=== PATIENT | female | born 1975 | race Caucasian/White ===

== ENCOUNTER 2020-02-27 17:04 | Outpatient (CLI) | payer OTHER, SELFPAY ==
--- NOTE | ~2020-02-27 | MM_ITS ---
EXAMINATION: MM screening magi BI w jesica HISTORY: Screening TECHNIQUE: Craniocaudal and mediolateral oblique 3-D tomosynthesis images were obtained and synthetic 2-D images were generated. CAD analysis was submitted and interpreted. COMPARISON: Comparison to multiple prior studies sequentially, with oldest reviewed study dated 02/2016. BREAST PARENCHYMAL COMPOSITION: Breast composed of scattered areas of fibroglandular density. FINDINGS: There are developing bilateral breast asymmetries in the upper outer quadrant of the right breast in the medial aspect of the left breast on CC view and upper aspect of the left breast on MLO view. No architectural distortion or suspicious calcifications. IMPRESSION: 1. Bilateral breast asymmetries. 2. Additional mammographic views and possible breast ultrasound are recommended. BI-RADS Category 0: Incomplete: Needs additional imaging evaluation. Reviewed, dictated and finalized at location A. R TESTER IMPRESSION: 1. Bilateral breast asymmetries. 2. Additional mammographic views and possible breast ultrasound are recommended . BI-RADS Category 0: Incomplete: Needs additional imaging evaluation.
== END 2020-02-27 17:05 | disposition home or self-care (01) ==
PROVIDERS: Visit Provider Obstetrics & Gynecology
DX: Z12.31 Encounter for screening mammogram for malignant neoplasm of breast (principal); R92.8 Other abnormal and inconclusive findings on diagnostic imaging of breast
CPT/HCPCS: 77063; 77067

== ENCOUNTER 2020-03-24 12:47 | Outpatient (CLI) | payer OTHER, SELFPAY ==
--- NOTE | ~2020-03-24 | MMUS_ITS ---
EXAMINATION: MM diagnostic mammo BI, US breast BI complete HISTORY: Bilateral mammographic asymmetries reported on 02/27/2020 screening mammogram examination TECHNIQUE: Additional 3-D tomosynthesis images of were performed and synthetic 2-D images were genera katarzyna. CAD analysis was submitted and interpreted. High resolution breast ultrasound was performed. COMPARISON: 02/27/2020 bilateral digital screening mammogram FINDINGS: MAMMOGRAPHIC FINDINGS: There is an approximately 10 mm asymmetric opacity in the lower outer quadrant of the right breast (M LO Tomosynthesis image 18/73). Stoma 8.5 mm circumscribed opacity in the inner aspect of the lower outer right breast (CC Tomosynthe sis image 19/82). Proximally 5.3 x 8 mm opacity in the lower inner left breast (MLO Tomosynthesis image 54/70). ULTRASOUND: Right breast: Dense tissue is noted on the right. No suspicious right breast mass or shadowing is noted. Left breast: 6:00 5 cm from nipple: There is a septated cyst without internal vascularity or posterior shadowing, with through transmission and posterior enhancement. No solid left mass or suspicious shadowing is evident. IMPRESSION: 1. No mammographic evidence of malignancy 2. Routine annual mammographic screening is recommended. BI-RADS Category 2: Benign finding(s). Reviewed, dictated and finalized at location A. ICAL TEST ENGINEER IMPRESSION: 1. No mammographic evidence of malignancy 2. Routine annual mammographic screening is recommended. BI-RADS Category 2: Benign finding(s).
== END 2020-03-24 12:48 | disposition home or self-care (01) ==
LOC: ANHIMG 12:52
PROVIDERS: Visit Provider Obstetrics & Gynecology
DX: R92.8 Other abnormal and inconclusive findings on diagnostic imaging of breast (principal)
CPT/HCPCS: 76641; 77066

== ENCOUNTER 2021-12-15 10:19 | Outpatient (CLI) | payer OTHER, SELFPAY ==
--- NOTE | ~2021-12-15 | MM_ITS ---
EXAMINATION: MM screening magi BI w jesica HISTORY: Screening TECHNIQUE: Craniocaudal and mediolateral oblique 3-D tomosynthesis images were obtained and synthetic 2-D images were generated. CAD analysis was submitted and interpreted. COMPARISON: Comparison to multiple prior studies sequentially, with oldest reviewed study dated 02/2016. BREAST PARENCHYMAL COMPOSITION: Breast composed of scattered areas of fibroglandular density FINDINGS: There are developing asymmetries in the medial aspect of the right breast posteriorly on CC view. Also focal asymmetry medially in the left breast on CC view. There are no suspicious calcifica tions or architectural distortion. IMPRESSION: 1. New bilateral breast asymmetries. 2. Additional mammographic views and possible breast ultrasound are recommended. BI-RADS Category 0: Incomplete: Needs additional imaging evaluation. Reviewed, dictated and finalized at location A. IMPRESSION: 1. New bilateral breast asymmetries. 2. Additional mammographic views and possible breast ultrasound are recommended . BI-RADS Category 0: Incomplete: Needs additional imaging evaluation.
== END 2021-12-15 10:20 | disposition home or self-care (01) ==
PROVIDERS: Visit Provider Obstetrics & Gynecology
DX: Z12.31 Encounter for screening mammogram for malignant neoplasm of breast (principal); R92.8 Other abnormal and inconclusive findings on diagnostic imaging of breast
CPT/HCPCS: 77063; 77067

== ENCOUNTER 2021-12-30 13:58 | Outpatient (CLI) | payer OTHER, SELFPAY ==
--- NOTE | ~2021-12-30 | MMUS_ITS ---
EXAMINATION: MM diagnostic magi BI w jesica, US breast LT limited HISTORY: Follow-up right breast asymmetry and possible left breast mass TECHNIQUE: Additional 3-D tomosynthesis images of the breasts were performed and synthetic 2-D images were generated. CAD analysis was submitted and interpreted. High resolution Limited left breast ultr asound was performed. COMPARISON: Comparison to multiple prior studies sequentially, with oldest reviewed study dated 09/2026. BREAST PARENCHYMAL COMPOSITION: Breast composed of scattered areas of fibroglandular density FINDINGS: MAMMOGRAPHIC FINDINGS: There are no suspicious masses, calcifications or architectural distortion in the right breasts to steven ggest malignancy. There is a small circumscribed mass in the lower inner quadrant of the left breast. ULTRASOUND: Limited left breast ultrasound: At 6:00, 3 cm from the nipple there is a 3 mm cyst. No other masses a re identified. No definitive correlate to the mass in the lower inner quadrant seen on mammography, a lthough this likely benign. IMPRESSION: 1. Probable benign left breast mass, lower inner quadrant. No definite sonographic correlate. 2. Recommend 6 month follow-up diagnostic left mammogram with possible additional ultrasound BI-RADS category 3, probably benign findings. Reviewed, dictated and finalized at location A. OF STORE OPERATIONS IMPRESSION: 1. Probable benign left breast mass, lower inner quadrant. No definite sonograp hic correlate. 2. Recommend 6 month follow-up diagnostic left mammogram with possible addition al ultrasound BI-RADS category 3, probably benign findings.
== END 2021-12-30 13:59 | disposition home or self-care (01) ==
PROVIDERS: Visit Provider Obstetrics & Gynecology
DX: R92.8 Other abnormal and inconclusive findings on diagnostic imaging of breast (principal)
CPT/HCPCS: 76642; 77062; 77066; G0279

== ENCOUNTER 2022-08-19 12:08 | Outpatient (CLI) | payer OTHER, SELFPAY ==
--- NOTE | ~2022-08-19 | MMUS_ITS ---
EXAMINATION: MM diagnostic magi LT w jesica, US breast LT limited HISTORY: Six-month follow-up for probably benign left breast masses TECHNIQUE: Craniocaudal, mediolateral, and mediolateral oblique 3-D tomosynthesis images of the left breast were performed and synthetic 2-D images were generated. CAD analysis was submitted and interpr eted. High resolution limited left breast ultrasound was performed. COMPARISON: 12/30/2021, 12/15/2021, 03/24/2020, 02/27/2020 BREAST PARENCHYMAL COMPOSITION: There are scattered areas of fibroglandular density. FINDINGS: MAMMOGRAPHIC FINDINGS: No suspicious mass, calcification, or architectural distortion are identified. A stable 6 mm low-dens ity obscured mass is seen at the 3:00 location 9 cm from the nipple. There has been no suspicious int erval change. ULTRASOUND: A 7 mm x 4 mm oval, circumscribed, parallel, hypoechoic mass at 8:00 location 6 cm from the nipple is decreased in size since the 2020 comparison. There is a 4 mm cyst at the 6:00 location 3 cm from the nipple. IMPRESSION: 1. No mammographic or sonographic evidence of malignancy. 2. Recommend bilateral screening mammography in six months. BI-RADS Category 2: Benign finding(s). Reviewed, dictated and finalized at location A. IMPRESSION: 1. No mammographic or sonographic evidence of malignancy. 2. Recommend bilateral screening mammography in six months. BI-RADS Category 2: Benign finding(s).
== END 2022-08-19 12:09 | disposition home or self-care (01) ==
LOC: ANHIMG 12:11
PROVIDERS: Visit Provider Obstetrics & Gynecology
DX: R92.8 Other abnormal and inconclusive findings on diagnostic imaging of breast (principal)
CPT/HCPCS: 76642; 77061; 77065; G0279

== ENCOUNTER 2023-06-05 14:45 | Outpatient (CLI) | payer OTHER, SELFPAY ==
--- NOTE | ~2023-06-05 | MM_ITS ---
EXAMINATION: MM screening magi BI w jesica HISTORY: Screening mammogram TECHNIQUE: Craniocaudal and mediolateral oblique 3-D tomosynthesis images were obtained and synthetic 2-D images were generated. CAD analysis was submitted and interpreted. COMPARISON: 08/19/2022 diagnostic left mammogram and limited left breast ultrasound examination 12/30/2021 diagnostic bilateral mammogram and limited left breast ultrasound 12/15/2021 bilateral screening mammogram 04/03/2020 diagnostic bilateral mammogram and complete bilateral breast ultrasound examination 02/27/2020 bilateral screening mammogram BREAST PARENCHYMAL COMPOSITION: There are scattered areas of fibroglandular density. FINDINGS: There is no evidence of suspicious mass, calcification, or architectural distortion to sugg est malignancy in either breast. There has been no suspicious interval change. IMPRESSION: 1. No mammographic evidence of malignancy. 2. Recommend routine screening mammography in one year. BI-RADS Category 1: Negative Reviewed, dictated and finalized at location A.
== END 2023-06-05 14:46 | disposition home or self-care (01) ==
LOC: ANHIMG 14:47
PROVIDERS: Visit Provider Obstetrics & Gynecology
DX: Z12.31 Encounter for screening mammogram for malignant neoplasm of breast (principal)
CPT/HCPCS: 77063; 77067

== ENCOUNTER 2024-12-24 08:36 | Outpatient (CLI) | payer OTHER, SELFPAY ==
--- NOTE | ~2024-12-24 | MM_ITS ---
EXAMINATION: MM screening [facility] BI w jesica HISTORY: Screening TECHNIQUE: Craniocaudal and mediolateral oblique 3-D tomosynthesis images were obtained and synthetic 2-D images were generated. CAD analysis was submitted and interpreted. COMPARISON: Comparison to multiple prior studies sequentially, with oldest reviewed study dated 02/27/2020. BREAST PARENCHYMAL COMPOSITION: Not dense: There are scattered areas of fibroglandular density. FINDINGS: There is no evidence of suspicious mass, calcification, or architectural distortion to suggest malignancy in either breast. There has been no suspicious interval change. IMPRESSION: 1. No mammographic evidence of malignancy. 2. Recommend routine screening mammography in one year. BI-RADS Category 1: Negative Reviewed, dictated and finalized at location C. UGH COORDINATOR
--- OUTSIDE RECORDS SUMMARY | 2024-12-24 08:50 | XMS_ITS | Encounter Summary ---
Author Organization [facility] Address [address] [place] [address] Care Team Providers Care Travel Pta Name Role Phone Lucy Mari MD Primary Care Provider Marj Gutierrez MD Unavailable [phone] Encounter Details Date Type Department Care Team (Late st Contact Info) Description 11/05/2024 Results Follow-Up [facility] Medical [facility] - Family Medicine [id number] [place] [address] [address] [place] [address] [place] [id number] [place] [address] Social History Tobacco Use Types Packs/Day Years Used Date Smoking Tobacco: Never Smokeless Tobacco: Never Alcohol Use Standard Drinks/Week Comments No 0 (1 standard drink = 0.6 oz pur e alcohol) PHQ-2 Answer Date Recorded Patient Health Questionnaire-2 Score 0 10/18/2024 Comments No Sex and Gender Information Value Date Recorded Sex Assigned at Not on file Legal Sex Female 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 Answer Date of Assessment Author No 11/14/2014 8:35 AM Nia Quintero RN * Is person blind or have serious difficulty seeing? Answer Date of Assessment Author No 11/14/2014 8:35 AM Nia Quintero RN * Does person have serious difficulty walking/climbing stairs? Answer Date of Assessment Author No 11/14/2014 8:35 AM CDT Nia Arriaza RN * Does person have difficulty dressing/bathing? Answer Date of Assessment Author No 11/14/2014 8:35 AM Nia Quintero RN * Does person have difficulty doing errands alone? Answer Date of Assessment Author No 11/14/2014 8:35 AM Nia Quintero RN documented as of this encounter Mental Status * Does person have difficulty concentrating/remembering/making decisions? Answer Entry Date Author No 11/14/2014 8:35 AM Nia Quintero RN documented in this encounter Plan of Treatment Upcoming Encounters Date Type Department Care Team (Late st Contact Info) Description 10/24/2025 9:00 AM CDT Office Visit [facility] - Family Medicine [id number] [address] [place] [id number] [place] [id number] documented as of this encounter Visit Diagnoses Not on filedocumented in this encounter Care Teams Travel Pta Relationship Specialty Start Date End Date Lucy Mari [place] [id number] [place] [id number] PCP - General Internal Medicine 10/08/09 Marj Gutierrez [place] [id number] [place] [id number] Ophthalmology 07/13/17 documented as of this encounter
--- OUTSIDE RECORDS SUMMARY | 2024-12-24 08:50 | XMS_ITS | Clinical Summary ---
Author Organization [facility] Address [address] [place] [address] Phone Care Team Providers Care Planning Director Name Role Phone Lucy Mari MD Primary Care Provider [phone] Allergies Active Allergy Reactions Criticality Noted Date Comments Lisinopril Rash Low 06/15/2015 Sulfa Antibiotics Rash Low 10/08/2009 Medications carvedilol (COREG) 6.25 MG Tablet TAKE 1 TABLET BY MOUTH TWICE DAILY (AM & PM) 03/25/2020 Active Social History Tobacco Use Types Packs/Day Years Used Date Smoking Tobacco: Never Smokeless Tobacco: Current Alcohol Use Standard Drinks/Week Comments Not Currently 0 (1 standard drink = 0.6 oz pur e alcohol) Comments No Sex and Gender Information Value Date Recorded Sex Assigned at Not on file Legal Sex Female 12:07 AM CDT Gender Identity Not on file Sexual Orientation Not on file Last Filed Vital Signs Vital Sign Reading Time Taken Comments Blood Pressure 104/64 04/27/2020 3:21 PM CDT Pulse 73 04/27/2020 3:21 PM CDT Temperature 36.7 C (98 F) 04/27/2020 3:21 PM CDT Respiratory Rate 18 04/27/2020 3:21 PM CDT Oxygen Saturation 97% 04/27/2020 3:21 PM CDT Inhaled Oxygen Concentration - - Weight 72.6 kg (160 lb) 04/27/2020 3:21 PM CDT Height - - Body Mass Index - - Plan of Treatment Health Maintenance Due Date Last Done Comments Hepatitis C Virus (HCV) Screening 1976 Mammogram 1976 TdaP Immunization 1976 Hepatitis B Immunization (1 of 3 - 19+ 3-dose series) 10/28/1995 Discussion re Starting/Frequency of Mammograms 2016 Cologuard 2021 Colonoscopy 2021 Colorectal Cancer Screening 2021 Immunochemical Fecal Occult Blood 2021 Influenza Immunization (#1) 2024 11/0 04/2019, 11/15/2018, 11/28/2017, Additional history exists SARS-COV-2 Immunization ( season) 2024 03/09/2021, 05/06/2020, 04/16/2020 Respiratory Syncytial Virus (RSV) Immunization (Adult) (1 - 1-dose 75+ series) 10/28/2051 Human Papillomavirus (HPV) Immunization Aged Out No longer eligible based on patient's age to complete this topic Meningococcal Immunization (ACWY) Aged Out No longer eligible based on patient's age to complete this topic Pneumococcal Immunization Combined Aged Out No longer eligible based on patient's age to complete this topic Rotavirus Immunization Aged Out No lo nger eligible based on patient's age to complete this topic Care Teams Planning Director Relationship Specialty [place] [id number] [address] PCP - General Internal Medicine 04/27/20
--- OUTSIDE RECORDS SUMMARY | 2024-12-24 08:50 | XMS_ITS | Clinical Summary ---
Author Organization [employer] [facility] Address [address] [place] [address] Care Team Providers Care Broadcast Checker Name Role Phone Unavailable Primary Care Provider Unavailabl e Social History Tobacco Use Types Packs/Day Years Used Date Smoking Tobacco: Never Assessed Comments Unknown Sex and Gender Information Value Date Recorded Sex Assigned at Not on file Legal Sex Female 5:29 AM RADIOISOTOPE TECHNICIAN Gender Identity Not on file Sexual Orientation Not on file Plan of Treatment Health Maintenance Due Date Last Done Comments DTAP/TDAP/TD VACCINES (1 - Tdap) 10/28/1995 HEPATITIS B VACCINES (1 of 3 - 19+ 3-dose series) 10/28/1995 HPV/Cotest (21-29) 1997 CERVICAL CANCER SCREENING 2006 HPV/Cotest (30-65) 2006 PAP SMEAR 2006 COLORECTAL SCREENING 2021 Colorectal Cancer Screening 2021 FIT-DNA Q 3 years 2021 FIT/FOBT Q 1 year 2021 Flex Sig/CT Colonography Q 5 years 2021 BREAST CANCER SCREENING 12/30/2022 12/30/2021 INFLUENZA VACCINE (#1) 2024 0, 11/15/2018, 11/28/2017, Additional history exists Insurance [facility] OPT[employer] PPO [id number]
--- OUTSIDE RECORDS SUMMARY | 2024-12-24 08:50 | XMS_ITS | Clinical Summary ---
Author Organization [facility] Address [address] [place] [address] Care Team Providers Care Computer Network Specialist Name Role Phone Lucy Mari MD Primary Care Provider [phone] Allergies Active Allergy Reactions Criticality Noted Date Comments Furosemide Itching Low 10/04/2021 Lisinopril Rash Medium 06/15/2015 Sulfa (Sulfonamide Antibiotics) Medications carvediloL (COREG) 6.25 mg tablet Take 1 tablet (6.25 mg total) by mouth 2 (two) times a day 1 Active atorvastatin (LIPITOR) 20 mg tablet Take 1 tablet (20 mg total) by mouth nightly 4 Active spironolactone (ALDACTONE) 100 mg tablet Take 1 tablet (100 mg total) by mouth daily Active HYDROcodone-skyler taminophen (NORCO) 5-325 mg per tablet Take 1 tablet by mouth every 6 (six) hours as needed for pain (Pain) for up to 10 doses 10 tablet 5 Active ondansetron (ZOFRAN) 4 mg tablet Take 1 tablet (4 mg total) by mouth every 6 (six) hours 12 tablet 5 Active cholecalciferol (VITAMIN D-3) 2000 unit tablet Take 1 tablet (2,000 Units total) by mouth 3 (three) times a week Doesn't take consistently the same days of the week Active fexofenadine (ROXANA) 60 mg tablet Take by mouth daily Patient unsure which OTC dose she takes Active tamsulosin (FLOMAX) 0.4 mg extended release capsule Take 1 capsule (0.4 mg total) by mouth daily with breakfast Active Active Problems Problem Noted Date Diagnosed Date Ureterolithiasis 07/22/2024 Social History Tobacco Use Types Packs/Day Years Used Date Smoking Tobacco: Never Passive Smoke Exposure: Never Smokeless Tobacco: Never Tobacco Cessation:Counseling Given: No [facility] Utilities Answer Date Recorded In the past 12 months has [employer], gas, oil, or water [employer] threatened to shut off services in your home? No 07/22/2024 Social Connection and Isolation Panel Answer Date Recorded In a typical week, how many times do you talk on the phone with family, friends, or neighbors? More than three times a week 07/22/2024 How often do you get togethe r with friends or relatives? More than three times a week 07/22/2024 How often do you attend chur ch or mosque services? 1 to 4 times per year 07/22/2024 Do you belong to any clubs o r organizations such as adventist groups, unions, fraternal or athletic groups, or school groups? No 07/22/2024 How often do you attend meet ings of the clubs or organizations you belong to? Never 07/22/2024 Are you , , di vorced, , never , or living with a partner? 07/22/2024 AUDIT-C Answer Date Recorded Q1: How often do you have a drink containing alc ohol? Monthly or less 07/22/2024 Q2: How many drinks containi ng alcohol do you have on a typical day when you are drinking? 1 or 2 07/22/2024 Q3: How often do you have si x or more drinks on one occasion? Never 07/22/2024 Overall Financial Resource Strain (CARDIA) Answe r Date Recorded How hard is it for you to pa y for the very basics like food, housing, medical care, and heating? Not hard at all 07/22/2024 Hunger Vital Sign Answer Date Recorded Within the past 12 months, y ou worried that your food would run out before you got the money to buy more. Never true 07/23/19 25 Within the past 12 months, t he food you bought just didn't last and you didn't have money to get more. Never true 07/22/2024 PRAPARE - Transportation Answer Date Re corded In the past 12 months, has l ack of transportation kept you from medical appointments or from getting medications? No 10/2024 In the past 12 months, has l ack of transportation kept you from meetings, work, or from getting things needed for daily living? No 07/22/2024 Housing Stability Vital Sign Answer Braulio e Recorded In the last 12 months, was t here a time when you were not able to pay the mortgage or rent on time? No 07/22/2024 In the past 12 months, how m any times have you moved where you were living? 0 07/22/2024 At any time in the past 12 m [facility], were you homeless or living in a care home (including now)? No 07/22/2024 Personal Safety Answer Date Recorded Have you ever been in or are you currently in a harmful physical or emotional relationship or is someone making you feel afraid or unsafe? Denies 07/22/2024 Comments No Sex and Gender Information Value Date Recorded Sex Assigned at Not on file Legal Sex Female 12:37 PM MILL HAND PLATE MILL Gender Identity Not on file Sexual Orientation Not on file Last Filed Vital Signs Vital Sign Reading Time Taken Comments Blood Pressure 130/72 07/22/2024 3:12 PM CDT Pulse 65 07/22/2024 3:12 PM CDT Temperature 36.1 C (97 F) 07/22/2024 2:20 PM CDT Respiratory Rate 12 07/22/2024 2:50 PM CDT Oxygen Saturation 97% 07/22/2024 3:12 PM CDT Inhaled Oxygen Concentration - - Weight 89.1 kg (196 lb 8 oz) 07/22/2024 1:10 AM CDT Height 160 cm (5' 3) 07/22/2024 1:10 AM CDT Body Mass Index 34.81 07/22/2024 1:10 AM CDT Plan of Treatment Health Maintenance Due Date Last Done Comments Colon Cancer Screening-Colonoscopy 1976 Depression Screening 1976 Hepatitis C Screening 1976 DTaP/Tdap/Td Vaccine (1 - Tdap) 10/28/1987 Hepatitis B Screening 1994 Regular Well Visit/Exam 18-64 1994 Breast Cancer Screening-Mammogram 12/30/2022 12/30/2021 Covid-19 Vaccine ( season) 2024 03/09/2021, 05/06/2020, 04/16/2020 Influenza Vaccine (#1) 2024 , 12/17/2019, 11/15/2018, Additional history exists Pneumococcal vaccine <65 Aged Out No longer eligible based on patient's age to complete this topic Insurance [facility] Advance Directives For more information, please contact: [phone] * Full Code (Latest Code Status on File) Date Activated Date Inactivated Comments 07/22/2024 1:10 AM 07/22/2024 11:04 PM Care Teams Computer Network Specialist Relationship Specialty [place] [id number] [place] [address] PCP - General Internal Medicine 03/07/24
--- OUTSIDE RECORDS SUMMARY | 2024-12-24 08:50 | XMS_ITS | Clinical Summary ---
Author Organization [facility] Address [address] [place] [address] Care Team Providers Care Core Drill Operator Name Role Phone Lucy Mari MD Primary Care Provider [phone] Marj Gutierrez MD Unavailable [phone] Source Comments [facility],non-owned Affiliates and Associated Physician Practices is amultiple site organization consisting of ambulatory clinics and hospital sitesin [place], [place], [place] and [place]. This disclosure is being madepursuant to the Care Everywhere program and may not contain all information available regarding this patient. Last updated 17.[facility]arity Allergies Active Allergy Reactions Criticality Noted Date Comments Furosemide Itching 10/04/2021 Lisinopril Rash Low 06/15/2015 Sulfa Drugs Rash Low 10/08/2009 Medications * Be aware that medications may not be up to date on this document. Alwaysverify current medications with the patient. Fexofenadine HCl (ROXANA PO) Active fluticasone furoate (FLONASE SENSIMIST/VERAM YST) 27.5 MCG/SPRAY nasal spray [place] 1 (one) spray into each nostril 2 times daily Active VITAMIN D PO Active spironolactone (Aldactone) 100 MG tablet Take 1 (one) tablet by mouth once daily Active cyclobenzaprine (Flexeril) 10 MG tablet Take 1 (one) tablet by mouth at bedtime 30 tablet 10/13/2023 Active atorvastatin (Lipitor) 20 MG tablet Take 1 (one) tablet by mouth once daily 90 tablet 3 10/23/2024 Active carvedilol (Coreg) 6.25 MG tablet Take 1 (one) tablet by mouth 2 times daily 180 tablet 3 10/23/2024 Active Active Problems Problem Noted Date Diagnosed Date Ureterolithiasis 07/22/2024 Annual physical exam 09/20/2018 Vitamin D deficiency disease 09/20/2018 Elevated cholesterol 10/09/2009 Resolved Problems Problem Noted Date Diagnosed Date Resolved Date B12 deficiency 01/27/2014 10/07/2022 Overview (01/27/2014): 01-27-2014: 311, was 208 earlier in year and tried supplement for very short time and was to recheck but she missed the recheck date. Now, continue the vitamin b12 1000 mcg daily for 6 months. Kidney stone 10/08/2009 09/20/2018 UTI (urinary tract infection) 10/08/2009 09/14/2017 Overview (2011): 2011: urine culture: no growth, was treated at with macrobid. Pyridium helping. Papilledema associated with increased intracranial pressure 10/07/2022 IIH (idiopathic intracranial hypertension) 10/07/2022 Encounters Date Type Department Care Team Description 11/05/2024 Results Follow-Up [address] [address] Lucy Mari MD 10/18/2024 9:30 AM CDT Office Visit [address] [address] Lucy Mari MD Annual physical exam (Primary Dx); Elevated cholesterol; Essential hypertension; Vitamin D deficiency disease; Renal insufficiency; Right renal stone; Sinusitis, unspecified chronicity, unspecified location; Weight gain from Last 3 Months Immunizations Immunization Administration Dates Next Due INFLUENZA VACCINE, TRIV. (AF LURIA, FLUZONE TRIVALENT; 6MO+) (IIV3) 11/28/2017,11/20/2013 INFLUENZA VACCINE 12/17/2019, 9,12/12/2017,2016,11/19/2015,12/07/2014 INFLUENZA VACCINE, QUADR. (F LUZONE; FLULAVAL; FLUARIX; AFLURIA QUADRIVALENT; 6MO+), 0.5 ML (IIV4) 12/17/2019,12/17/2019,11/15/2018,2017 Family History Medical History Relation Name Comments Cancer Father colon cancer Diabetes Father CAD (Coronary Artery Disease) Maternal Grandmother Hypertension Mother Relation Name Status Comments Father Alive Maternal Grandfather Maternal Grandmother Mother Alive Paternal Grandfather Alive Paternal Grandmother Social History Tobacco Use Types Packs/Day Years Used Date Smoking Tobacco: Never Smokeless Tobacco: Never Tobacco Cessation:Counseling Given: Not Answered Alcohol Use Standard Drinks/Week Comments No 0 (1 standard drink = 0.6 oz pur e alcohol) PHQ-2 Answer Date Recorded Patient Health Questionnaire-2 Score 0 10/18/2024 Comments No Sex and Gender Information Value Date Recorded Sex Assigned at Not on file 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 Gender Identity Not on file Sexual Orientation Not on file 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 Not on file Not on file Not on file Last Filed Vital Signs Vital Sign Reading Time Taken Comments Blood Pressure 120/80 10/18/2024 9:05 AM CDT Pulse 62 10/18/2024 9:05 AM CDT Temperature 36.3 C (97.3 F) 10/18/2024 9:05 AM CDT Respiratory Rate 18 10/18/2024 9:05 AM CDT Oxygen Saturation 96% 10/18/2024 9:05 AM CDT Inhaled Oxygen Concentration - - Weight 83.5 kg (184 lb) 10/18/2024 9:05 AM CDT Height 160 cm (5' 2.99) 10/18/2024 9:05 AM CDT Body Mass Index 32.6 10/18/2024 9:05 AM CDT Plan of Treatment Upcoming Encounters Date Type Department Care Team (Late st Contact Info) Description 10/24/2025 9:00 AM CDT Office Visit [facility] - Family Medicine [address] [place] [address] [place] [address] [place] [address] Health Maintenance Due Date Last Done Comments COLOGUARD (AGES 45-75) - COLON CA SCREENING 1975 CT COLONOGRAPHY - COLON CA SCREENING 1975 FIT - COLON CA SCREENING 1975 FLEX SIG - COLON CA SCREENING 1975 HIV SCREENING 10/28/1991 HEPATITIS B VACCINE (1 of 3 - 19+ 3-dose series) 10/28/1995 MAMMOGRAM 06/04/2024 06/05/2023, 12/14, 12/15/2021, Additional history exists DTAP/TDAP/TD VACCINES (1 - Tdap) 01/17/2025 Postponed from 10/28/1995 (Patient Refused) PAP SMEAR 02/13/2025 02/13/2022 (Done Outside Per Patient), 01/13/2017 (Done Outside Per Patient) INFLUENZA VACCINE (#1) 2025 , 12/17/2019, 12/17/2019, Additional history exists Postponed from 10/14/2024 (Patient Refused) COVID-19 VACCINE (3 - 2024- season) 2025 05/06/2020, 04/16/2020 Postponed from 10/14/2024 (Patient Refused) ZOSTER VACCINE (1 of 2) 2026 SCREENING FOR DIABETES 11/05/2027 , 11/04/2024, 10/13/2023, Additional history exists COLON MONITORING 10/23/2031 10/22/2021, 10/22/2021 COLONOSCOPY - COLON CA SCREENING 10/23/2031 10/22/2021, 10/22/2021 Colorectal Cancer Screening 10/23/2031 HEPATITIS C SCREENING Completed 10/07/2022 DEPRESSION SCREENING Completed 07/11/2024, 10/13/2023, 03/30/2022, Additional history exists HIB VACCINE Aged Out No longer eligi ble based on patient's age to complete this topic HPV VACCINE Aged Out No longer eligi ble based on patient's age to complete this topic MENINGOCOCCAL (Group B) VACCINE SHARED DECISION-MAKING Aged Out No longer eligible based on patient's age to complete this topic MENINGOCOCCAL GROUPS A/C/Y/W VACCINE Aged Out No longer eligible based on patient's age to complete this topic PNEUMOCOCCAL VACCINE Aged Out No long er eligible based on patient's age to complete this topic Procedures Procedure Name Priority Date/Time Associated Diagnosis Comments URINALYSIS W/MICROSCOPIC REFLEX TO CULTURE Routine 11/04/2024 12:10 PM CDT HEMOGLOBIN A1C Routine 11/04/2024 12:09 PM CDT Weight gain TSH Routine 11/04/2024 12:09 PM CDT Weight gain VITAMIN D 25-HYDROXY Routine 11/04/2024 12:09 PM CDT Vitamin D deficiency disease CBC W AUTO DIFFERENTIAL Routine 11/04/2024 12:09 PM CDT Renal insufficiency LIPID PROFILE W TCHOL/HDL Routine 11/04/2024 12:09 PM CDT Weight gain COMPREHENSIVE METABOLIC PANEL Routine 11/04/2024 12:09 PM CDT Annual physical exam Elevated cholesterol Essential hypertension MAMMOGRAM 06/05/2023 HEPATITIS C ANTIBODY Routine 10/07/2022 10:16 AM CDT Need for hepatitis C screening test ENDOSCOPY, COLON, SCREENING Routine 10/22/2021 10:04 AM CDT Screening for colon cancer from Last 3 Months or Most Recently Relevant to Health Maintenance Results * URINALYSIS W/MICROSCOPIC REFLEX TO CULTURE (11/04/2024 12:10 PM CDT) Specific Hagan UA 1.010 1.005 - 1.030 [facility] ACCOUNT BILL pH UA 6.0 5.0 - 7.5 [facility] ACCOUNT BILL Color UA Yellow Yellow [facility] ACCOUNT BILL Appearance Clear Clear [facility] ACCOUNT BILL Leukocyte UA Negative Negative [facility] ACCOUNT [facility]ILL Protein UA Negative Negative/Tra ce [facility] ACCOUNT BILL Glucose UA Negative Negative [facility] ACCOUNT BILL Ketone UA Negative Negative [facility] ACCOUNT BILL Occult Blood Urine Negative Negative [facility] ACCOUNT BILL Bilirubin UA Negative Negative [facility] ACCOUNT BILL Urobilinogen 0.2 0.2 - 1.0 mg/dL [facility] ACCOUNT BILL Nitrite UA Negative Negative [facility] ACCOUNT BILL Microscopic Examination Urine Comment [facility] ACCOUNT BILL Comment:Microscopic follows if indicated. Microscopic Examination Urine See below: [facility] ACCOUNT BILL Comment:Microscopic was michael cated and was performed. Urinalysis Reflex Comment [facility] ACCOUNT BILL Comment: This specimen will not reflex to a Urine Culture. Performed at: [facility] [id number] Service Planner: Christopher Samuels PhD, Phone: [phone] WBC UA None seen 0 - 5 /hpf [facility] ACCOUNT BILL RBC UA None seen 0 - 2 /hpf [facility] ACCOUNT BILL Epithelial Cells (non renal) None seen 0 - 10 /hpf [facility] ACCOUNT BILL Casts ua None seen None seen /lpf [facility] ACCOUNT BILL Bacteria UA None seen None seen/Few [facility] ACCOUNT BILL 11/04/2024 12:1 0 PM CDT 11/04/2024 Narrative [facility] ACCOUNT BILL - 11/05/2024 12:07 PM CDT Performed at: [facility] [id number] Service Planner: Christopher Samuels PhD, Phone: [phone] us Lucy Mari MD LAB - URINALYSIS ORDERABLES Fi nal Result [facility] ACCOUNT BILL [address] [place] [address] * (ABNORMAL) LIPID PROFILE W TCHOL/HDL (11/04/2024 12:09 PM CDT) Cholesterol 141 100 - 199 mg/dL [facility] ACCOUNT BILL Triglycerides 106 0 - 149 mg/dL [facility] ACCOUNT BILL HDL Cholesterol 38(L) >39 mg/dL [facility] ACCOUNT BILL VLDL Calculated 20 5 - 40 mg/dL [facility] ACCOUNT BILL LDL Calculated 83 0 - 99 mg/dL [facility] ACCOUNT BILL Cholesterol/HDL Ratio 3.7 0.0 - 4.4 ratio [facility] ACCOUNT BILL Comment: T. Chol/HDL Ratio Men Women 2 Avg.Risk 3.4 3.3 Avg.Risk 5.0 4.4 2X Avg.Risk 9.6 7.1 3X Avg.Risk 23.4 11.0 Blood BLOOD SPECIMEN / Unknown 11/04/2024 12:09 PM CDT 11/04/2024 Narrative [facility] ACCOUNT BILL - 11/05/2024 12:07 PM CDT Performed at: [address] [id number] Service Planner: Christopher Samuels PhD, Phone: [phone] Lucy Mari MD LAB - CHEMISTRY ORDERABLES Fin al Result Performing Organization Address [facility] Co de Phone Number [facility] ACCOUNT BILL [address] [place] [address] * HEMOGLOBIN A1C (11/04/2024 12:09 PM CDT) Hemoglobin A1c 5.4 4.8 - 5.6 % [facility] ACCOUNT BILL Comment: Prediabetes: 5.7 - 6.4 Diabetes: >6.4 Glycemic control for adults with diabetes: <7.0 Blood BLOOD SPECIMEN / Unknown 11/04/2024 12:09 PM CDT 11/04/2024 Narrative [facility] ACCOUNT BILL - 11/05/2024 7:06 AM CDT Performed at: [address] [id number] Service Planner: Christopher Samuels PhD, Phone: [phone] Lucy Mari MD LAB - CHEMISTRY ORDERABLES Fin al Result Performing Organization Address [facility] Co de Phone Number [facility] ACCOUNT BILL [address] [place] [address] * VITAMIN D 25-HYDROXY (11/04/2024 12:09 PM CDT) Vitamin D, 25 Hydroxy 42.4 30.0 - 100.0 ng/mL [facility] ACCOUNT BILL Comment: Vitamin D deficiency has been defined by the [place] of Medicine and an Endocrine Society practice guideline as a level of serum 25-OH vitamin D less than 20 ng/mL (1,2). The Endocrine Society went on to further define vitamin D insufficiency as a level between 21 and 29 ng/mL (2). 1. IOM ([place] of Medicine). 2010. Dietary reference intakes for calcium and D. [place]: The National Academies Press. 2. mAor MF, Zak [place], David GIVENS, et al. Evaluation, treatment, and prevention of vitamin D deficiency: an Endocrine Society clinical practice guideline. JCEM. 2010; 96(3):1911-30. Blood BLOOD SPECIMEN / Unknown 11/04/2024 12:09 PM CDT 11/04/2024 Narrative [facility] ACCOUNT BILL - 11/05/2024 7:06 AM CDT Performed at: [address] [place] [id number] Service Planner: Christopher Samuels PhD, Phone: [phone] Lucy Mari MD LAB - CHEMISTRY ORDERABLES Fin al Result [facility] ACCOUNT BILL [address] [place] [address] * CBC WITH DIFFERENTIAL (11/04/2024 12:09 PM CDT) WBC 9.2 3.4 - 10.8 x10E3/uL [facility] ACCOUNT BILL RBC 4.20 3.77 - 5.28 x10E6/uL [facility] ACCOUNT BILL Hemoglobin 13.0 11.1 - 15.9 g/dL [facility] ACCOUNT BILL Hematocrit 39.7 34.0 - 46.6 % [facility] ACCOUNT BILL MCV 95 79 - 97 fL [facility] ACCOUNT BILL MCH 31.0 26.6 - 33.0 pg [facility] ACCOUNT BILL MCHC 32.7 31.5 - 35.7 g/dL [facility] ACCOUNT BILL RDW 12.0 11.7 - 15.4 % [facility] ACCOUNT BILL Platelet Count 258 150 - 450 x10E3/uL [facility] ACCOUNT BILL Granulocytes % 67 Not Estab. % [facility] ACCOUNT BILL Lymphocytes % 23 Not Estab. % [facility] ACCOUNT BILL Monocytes % 8 Not Estab. % [facility] ACCOUNT BILL Eosinophils % 1 Not Estab. % [facility] ACCOUNT BILL Basophils % 0 Not Estab. % [facility] ACCOUNT BILL Granulocytes Absolute 6.2 1.4 - 7.0 x10E3/uL [facility] ACCOUNT BILL Lymphocytes Absolute 2.1 0.7 - 3.1 x10E3/uL [facility] ACCOUNT BILL Monocytes Absolute 0.7 0.1 - 0.9 x10E3/uL [facility] ACCOUNT BILL Eosinophils Absolute 0.1 0.0 - 0.4 x10E3/uL [facility] ACCOUNT BILL Basophils Absolute 0.0 0.0 - 0.2 x10E3/uL [facility] ACCOUNT BILL Immature Granulocytes 1 Not Estab. % [facility] ACCOUNT BILL Immature Granulocytes Absolute 0.1 0.0 - 0.1 x10E3/uL [facility] ACCOUNT BILL Blood BLOOD SPECIMEN / Unknown 11/04/2024 12:09 PM CDT 11/04/2024 Narrative [facility] ACCOUNT BILL - 11/05/2024 7:06 AM CDT Performed at: 01 - [facility] [id number] Service Planner: Christopher Samuels PhD, Phone: [phone] Lucy Mari MD LAB - HEMATOLOGY ORDERABLES Fi nal Result [facility] ACCOUNT BILL [address] [place] [address] * (ABNORMAL) COMPREHENSIVE METABOLIC PANEL (11/04/2024 12:09 PM CDT) Pathologist [facility] Glucose 88 70 - 99 mg/dL [facility] ACCOUNT BILL BUN 6 6 - 24 mg/dL [facility] ACCOUNT BILL Creatinine 0.83 0.57 - 1.00 mg/dL [facility] ACCOUNT BILL eGFR by CKD-EPI 87 >59 mL/min/1.7 3 [facility] ACCOUNT BILL BUN/Creatinine Ratio 7(L) 9 - 23 [facility] ACCOUNT BILL Sodium 138 134 - 144 mmol/L [facility] ACCOUNT BILL Potassium 4.8 3.5 - 5.2 mmol/L [facility] ACCOUNT BILL Chloride 104 96 - 106 mmol/L [facility] ACCOUNT BILL CO2 18(L) 20 - 29 mmol/L [facility] ACCOUNT BILL Calcium 9.4 8.7 - 10.2 mg/dL [facility] ACCOUNT BILL Protein Total 6.6 6.0 - 8.5 g/dL [facility] ACCOUNT BILL Albumin 4.2 3.9 - 4.9 g/dL [facility] ACCOUNT BILL Globulin Total 2.4 1.5 - 4.5 g/dL [facility] ACCOUNT BILL Bilirubin Total 0.5 0.0 - 1.2 mg/dL [facility] ACCOUNT BILL Alkaline Phosphatase 70 41 - 116 IU/L [facility] ACCOUNT BILL Comment:Please note refere nce interval change AST 15 0 - 40 IU/L [facility] ACCOUNT BILL ALT 13 0 - 32 IU/L [facility] ACCOUNT BILL Blood BLOOD SPECIMEN / Unknown 11/04/2024 12:09 PM CDT 11/04/2024 Narrative [facility] ACCOUNT BILL - 11/05/2024 12:07 PM CDT Performed at: - [address] [id number] Service Planner: Christopher Samuels PhD, Phone: [phone] Lucy Mari MD LAB - CHEMISTRY ORDERABLES Fin al Result Performing Organization Address [facility] Co de Phone Number [facility] ACCOUNT BILL [address] [place] [address] * TSH (11/04/2024 12:09 PM CDT) TSH 2.000 0.450 - 4.500 uIU/mL [facility] ACCOUNT BILL Blood BLOOD SPECIMEN / Unknown 11/04/2024 12:09 PM CDT 11/04/2024 Narrative [facility] ACCOUNT BILL - 11/05/2024 12:07 PM CDT Performed at: [address] [place] [id number] Service Planner: Christopher Samuels PhD, Phone: [phone] Lucy Mari MD LAB - CHEMISTRY ORDERABLES Fin al Result Performing Organization Address City/[facility]/ZIP Co de Phone Number [facility] ACCOUNT BILL [address] [place] [address] * MAMMOGRAM (06/05/2023) Anatomical Region Laterality Modality Other 06/05/2023 Narrative 06/05/2023 Ordered by an unspecified provider. us Scanned Document SCANNING ONLY Final Result * HEPATITIS C ANTIBODY (10/07/2022 10:16 AM CDT) Hepatitis C Antibody Non Reactive Non Reactive [facility] ACCOUNT BILL Comment: Non Reactive - Antibodies to Hepatitis C virus (HCV) were no t detected, result does not exclude early acute HCV infection. FASTING Blood BLOOD SPECIMEN / Unknown 10/07/2022 10:16 AM CDT 10/07/2022 Narrative Resulting Agency Comment Lab Testing performed at: [address] [place] [id number] us Lucy Mari MD LAB - CHEMISTRY ORDERABLES Fin al Result [facility] ACCOUNT BILL [address] [place] [address] * ENDOSCOPY, COLON, SCREENING (10/22/2021 10:04 AM CDT) Report Endoscopy POC _ Patient Name: Eleanor Olvera Procedure Date: 10/22/2021 10:04 AM Date of : 1975 Admit Type: Outpatient Age: 45 Gender: Female Attending MD: Claudio Paz MD _ Procedure: Colonoscopy Indications: Screening in patient at increased risk: Colorectal cancer in father before age 60, Last colonoscopy: 2009 Providers: Claudio Paz MD (Doctor) Referring MD: Lucy Mari MD (Referring MD) Medicines: Monitored Anesthesia Care Complications: No immediate complications. _ Estimated Blood Loss: Estimated blood loss: none. Procedure: Pre-Anesthesia Assessment: - Prior to the procedure, a History and Physical was performed, and patient medications and allergies were reviewed. The patient is competent. The risks and benefits of the procedure and the sedation options and risks were discussed with the patient. All questions were answered and informed consent was obtained. Patient identification and proposed procedure were verified by the physician, the nurse and the sail finisher machine in the procedure room. Mental Status Examination: alert and oriented. Airway Examination: normal oropharyngeal airway and neck mobility. Respiratory Examination: clear to auscultation. CV Examination: normal. Prophylactic Antibiotics: The patient does not require prophylactic antibiotics. Prior Anticoagulants: The patient has taken no previous anticoagulant or antiplatelet agents. ASA Grade Assessment: II - A patient with mild systemic disease. After reviewing the risks and benefits, the patient was deemed in satisfactory condition to undergo the procedure. The anesthesia plan was to use monitored anesthesia care (MAC). Immediately prior to administration of medications, the patient was re-assessed for adequacy to receive sedatives. The heart rate, respiratory rate, oxygen saturations, blood pressure, adequacy of pulmonary ventilation, and response to care were monitored throughout the procedure. The physical status of the patient was re-assessed after the procedure. After I obtained informed consent, the scope was passed under direct vision. Throughout the procedure, the patient's blood pressure, pulse, and oxygen saturations were monitored continuously. The Colonoscope was introduced through the anus and advanced to the cecum, identified by appendiceal orifice and ileocecal valve. The colonoscopy was performed without difficulty. The patient tolerated the procedure well. The quality of the bowel preparation was excellent. The ileocecal valve, appendiceal orifice, and rectum were photographed. Findings: The digital rectal exam findings include non-thrombosed external hemorrhoids. Pertinent negatives include no palpable rectal lesions. Internal hemorrhoids noted in retroflexion. A 3 mm polyp was found in the sigmoid colon. The polyp was flat. The polyp was removed with a cold biopsy forceps. Resection and retrieval were complete. The rectum, descending colon, transverse colon, ascending colon, cecum, appendiceal orifice and ileocecal valve appeared normal. _ Impression: - Non-thrombosed external hemorrhoids found on digital rectal exam. Internal hemorrhoids also noted in retroflexion. - One 3 mm polyp in the sigmoid colon, removed with a cold biopsy forceps. Resected and retrieved. - The rectum, descending colon, transverse colon, ascending colon, cecum, appendiceal orifice and ileocecal valve are normal. Recommendation: - Await pathology results. - Repeat colonoscopy in 5 years for surveillance. - Return to primary care physician as previously scheduled. - Resume previous diet. - Continue present medications. - Patient has a contact number available for emergencies. The signs and symptoms of potential delayed complications were discussed with the patient. Return to normal activities tomorrow. Written discharge instructions were provided to the patient. Procedure Code(s): --- Professional --- 25248, Colonoscopy, flexible; with biopsy, single or multiple --- Technical --- 63407, Colonoscopy, flexible; with biopsy, single or multiple Diagnosis Code(s): --- Professional --- Z80.0, Family history of malignant neoplasm of digestive organs K64.4, Residual hemorrhoidal skin tags K63.5, Polyp of colon --- Technical --- Z80.0, Family history of malignant neoplasm of digestive organs K64.4, Residual hemorrhoidal skin tags K63.5, Polyp of colon CPT copyright 2019 [employer]. All rights reserved. The codes documented in this report are preliminary and upon assistant customer service manager review may be revised to meet current compliance requirements. Dr. Claudio Paz MD Claudio Paz MD 10/22/2021 11:11:10 AM This report has been signed electronically. Number of Addenda: 0 Note Initiated On: 10/22/2021 10:04 AM [facility] 10/22/2021 10:0 4 AM CDT Claudio Paz MD GI PROCEDURE ORDERABLES Kevin katarzyna Result - Final [facility] [place] [id number] from Last 3 Months or Most Recently Relevant to Health Maintenance Insurance [facility] Care Teams Core Drill Operator Relationship Specialty [place] [address] [place] [address] PCP - General Internal Medicine 10/08/09 [place] [address] [place] [address] Ophthalmology 07/13/17
== END 2024-12-24 08:37 | disposition home or self-care (01) ==
LOC: ANHFOHIMG 08:37
PROVIDERS: Visit Provider Obstetrics & Gynecology
DX: Z12.31 Encounter for screening mammogram for malignant neoplasm of breast (principal)
CPT/HCPCS: 77063; 77067